=== PATIENT | female | born 2000 | race American Indian/Alaskan Native ===

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

== ENCOUNTER 2021-05-27 11:51 | Emergency (ER) | payer MEDICAID ==
[2021-05-27 13:30] VITALS: BP 118/81
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
== END 2021-05-27 15:21 | disposition home or self-care (01) ==
LOC: ED 11:51
DX: R51.9 Headache, unspecified (principal); M54.2 Cervicalgia; M54.6 Pain in thoracic spine; R07.9 Chest pain, unspecified; V89.2XXA Person injured in unspecified motor-vehicle accident, traffic, initial encounter; Y93.89 Activity, other specified; Y92.89 Other specified places as the place of occurrence of the external cause; Y99.8 Other external cause status
CPT/HCPCS: 99282

== ENCOUNTER 2021-12-24 11:14 | Outpatient (CLI) | payer MEDICAID, OTHER ==
[2021-12-24 12:39] VITALS: BP 111/68
--- NOTE | 2021-12-24 19:12 | Ultrasound Report ---
ULTRASOUND OBSTETRIC COMPLETE INDICATION / CLINICAL INFORMATION: VAGINAL BLEEDING - ANATOMY SCAN. Clinical Gestational Age (GA) in weeks.days: 22.1 TECHNIQUE: Transabdominal. COMPARISON: None available. FINDINGS: NUMBER: Single PRESENTATION: breech PLACENTA: posterior and free of the os. MATERNAL ADNEXA: No significant abnormality. AMNIOTIC FLUID VOLUME: normal ANATOMY: organs (including the bladder, stomach, kidneys, heart, umbilical cord, diaphragm, cord inserti on, spine and intracranial structures) are visualized and show no significant abnormality with the fo llowing exception(s): Kidneys not well seen MEASUREMENTS: - Biparietal Diameter = 4.7 cm = 20.2 weeks.days - Head Circumference = 18.9 cm = 21.1 weeks.days - Abdominal Circumference = 18.0 cm = 22.6 weeks.days - Femur Length = 4.1 cm = 23.3 weeks.days - Estimated Weight (in grams, if calculated): 533 - Heart Rate (beats per minute): 152 ADDITIONAL FINDINGS: None. PERCENTILE ESTIMATED WEIGHT (if calculated): 76 AVERAGE ULTRASOUND AGE (AUA) in weeks.days = 22.0 IMPRESSION: 1. Single intrauterine with AUA of 22.0 weeks.days 2. The kidneys were not well-visualized on this exam. Signer Name: Joey Olivia MD Signed: 12/24/2021 7:08 PM Workstation Name: [id number]
== END 2021-12-24 20:35 | disposition home or self-care (01) ==
LOC: TRG 11:14 → APU 11:15 → TRG 20:35
PROVIDERS: ATTEND Obstetrics & Gynecology
DX: O46.92 Antepartum hemorrhage, unspecified, second trimester (principal); Z3A.22 22 weeks gestation of pregnancy
CPT/HCPCS: 59025; 76805